=== PATIENT | male | born 1990 | race Caucasian/White ===

== ENCOUNTER 2023-03-18 00:55 | Inpatient (IN) | payer MEDICAID ==
[~2023-03-18] VITALS: Ht 177.8 cm; Wt 90.7 kg
[2023-03-18] MEDS ORDERED: HALOPERIDOL 5 MG TABLET PO PRN (03:00)
[2023-03-18] MEDS ORDERED: ZOLPIDEM TARTRATE 10 MG TABLET PO PRN (03:00)
[2023-03-18 03:35] VITALS: BP 122/80
[2023-03-18] MEDS ORDERED: GLUCAGON,HUMAN RECOMBINANT 1 MG VIAL IM PRN (06:00)
[2023-03-18] MEDS: INSULIN LISPRO 100 UNITS/ML SQ PRN ×4 (06:20→21:24)
[2023-03-18 06:26] LABS: GLUCOMETER DEV NAME(LOC) BV3N.; GLUCOSE,POINT OF CARE 260 MG/DL (70-110)
[2023-03-18 07:47] LABS: HEMOGLOBIN A1C 9.1 % (3.8-5.6)
[2023-03-18 07:59] LABS: CHOL/HDL RATIO 4.4 (4.2-7.3); CHOLESTEROL 208 mg/dL (131-200); FREE T4 (FREE THYROXINE) 0.99 ng/dL (0.76-1.46); HDL CHOLESTEROL 47 mg/dL (40-60); LDL CHOL (CALC.) 139 mg/dL (0-130); THYROID STIMULATING HORMONE 11.75 uIU/mL (0.36-3.74); TRIGLYCERIDES 112 mg/dL (15-150)
[2023-03-18 08:19] LABS: BASOPHILS % (AUTO) 0.6 % (0.0-2.0); EOSINOPHILS % (AUTO) 2.8 % (1.0-6.0); HEMATOCRIT 41.8 % (41-53); HEMOGLOBIN 13.8 g/dL (13.5-17.5); LYMPHOCYTES # (AUTO) 1.9 K/uL (1.0-4.8); LYMPHOCYTES % (AUTO) 40.7 % (22.0-44.0); MEAN CORPUSCULAR HEMOGLOBIN 29.1 pg (26.0-34.0); MEAN CORPUSCULAR HGB CONC 33.1 G/dL (31.0-37.0); MEAN CORPUSCULAR VOLUME 88 fL (80-100); MONOCYTES # (AUTO) 0.7 K/uL (0.1-1.0); MONOCYTES % (AUTO) 15.2 % (2.0-9.0); NEUTROPHILS # (AUTO) 1.9 K/uL (1.8-7.7); NEUTROPHILS % (AUTO) 40.7 % (40.0-70.0); PLATELET COUNT (AUTO) 397 K/uL (150-450); RED BLOOD CELL COUNT(AUTO) 4.76 MIL/uL (4.50-5.90)
[2023-03-18 08:23] LABS: ANION GAP 11 mmol/L (8-16); CALCIUM, TOTAL 8.6 mg/dL (8.8-10.5); CARBON DIOXIDE 25 mmol/L (22-29); CHLORIDE 101 mmol/L (98-107); GLOMERULAR FILTR. RATE CALC > 60 mL/min (>60); GLUCOSE,RANDOM 273 mg/dL (70-110); POTASSIUM 4.4 mmol/L (3.5-5.1); SODIUM SERUM 137 mmol/L (136-145)
[2023-03-18] MEDS: INSULIN GLARGINE,HUM.REC.ANLOG 100 UNITS/ML SQ SCH (08:41)
[2023-03-18 08:56] LABS: GLUCOMETER DEV NAME(LOC) BV3N.; GLUCOSE,POINT OF CARE 179 MG/DL (70-110)
[2023-03-18] MEDS: LORazepam 2 MG TABLET PO PRN ×3 (09:29→21:21)
[2023-03-18] MEDS ORDERED: TRAZ-252 PO (09:30)
[2023-03-18] MEDS ORDERED: DULO20CA71 PO (09:30)
[2023-03-18] MEDS ORDERED: GABA-1181 PO (09:30)
[2023-03-18] MEDS: DULoxetine HCL 20 MG CAPSULE PO SCH (10:21)
[2023-03-18 11:41] LABS: GLUCOMETER DEV NAME(LOC) BV3N.; GLUCOSE,POINT OF CARE 255 MG/DL (70-110)
[2023-03-18] MEDS: GABAPENTIN 300 MG CAPSULE PO SCH ×2 (12:10→17:02)
[2023-03-18] MEDS: NICOTINE POLACRILEX 2 MG LOZENGE PO PRN ×2 (14:50→20:58)
[2023-03-18 17:36] LABS: GLUCOMETER DEV NAME(LOC) BV3N.; GLUCOSE,POINT OF CARE 303 MG/DL (70-110)
[2023-03-18 20:51] LABS: GLUCOMETER DEV NAME(LOC) BV3N.; GLUCOSE,POINT OF CARE 202 MG/DL (70-110)
[2023-03-18] MEDS ORDERED: INSULIN GLARGINE,HUM.REC.ANLOG 100 UNITS/ML SQ SCH ×2 (21:00)
[2023-03-18] MEDS ORDERED: TraZODone HCL 50 MG TABLET PO SCH (21:00)
[2023-03-19] MEDS: LORazepam 2 MG TABLET PO PRN (06:15)
[2023-03-19] MEDS: INSULIN LISPRO 100 UNITS/ML SQ PRN ×2 (06:19→11:48)
[2023-03-19] MEDS: NICOTINE POLACRILEX 2 MG LOZENGE PO PRN ×2 (06:19→13:25)
[2023-03-19 06:21] LABS: GLUCOMETER DEV NAME(LOC) BV3N.; GLUCOSE,POINT OF CARE 303 MG/DL (70-110)
[2023-03-19 08:23] LABS: CHOL/HDL RATIO 4.5 (4.2-7.3)
[2023-03-19 08:35] LABS: HEMOGLOBIN A1C 9.4 % (3.8-5.6)
[2023-03-19] MEDS: GABAPENTIN 300 MG CAPSULE PO SCH ×2 (08:36→12:06)
[2023-03-19] MEDS: DULoxetine HCL 20 MG CAPSULE PO SCH (08:36)
[2023-03-19] MEDS: INSULIN GLARGINE,HUM.REC.ANLOG 100 UNITS/ML SQ SCH (08:46)
[2023-03-19 12:26] LABS: GLUCOMETER DEV NAME(LOC) BV3S.; GLUCOSE,POINT OF CARE 207 MG/DL (70-110)
== END 2023-03-19 15:10 | disposition left against medical advice (07) | DRG 751 ==
LOC: B3A 03:16
PROVIDERS: ADMIT Psychiatry & Neurology Psychiatry; ATTEND Psychiatry & Neurology Psychiatry
DX: F32.2 Major depressive disorder, single episode, severe without psychotic features (principal); R45.851 Suicidal ideations; E11.40 Type 2 diabetes mellitus with diabetic neuropathy, unspecified; E11.65 Type 2 diabetes mellitus with hyperglycemia; F10.10 Alcohol abuse, uncomplicated; F41.9 Anxiety disorder, unspecified; G47.00 Insomnia, unspecified; Z53.21 Procedure and treatment not carried out due to patient leaving prior to being seen by health care provider
CPT/HCPCS: 80048; 80061; 82962; 83036; 84439; 84443; 85025; J1815; Q9967